=== PATIENT | male | born 1965 | race Caucasian/White ===

== ENCOUNTER 2017-09-24 03:10 | Emergency (ER) | payer SELFPAY ==
[~2017-09-24] VITALS: Ht 162.6 cm; Wt 72.0 kg
[2017-09-24] MEDS ORDERED: SODIUM CHLORIDE 0.9% 1,000ML IVBOLUS ONE (03:30)
[2017-09-24] MEDS ORDERED: ONDANSETRON 2MG/ML, 2ML IVPush ONE (03:30)
[2017-09-24] MEDS ORDERED: DIAZEPAM 5 MG/ML, 2ML IVPush ONE (03:30)
[2017-09-24] MEDS ORDERED: MAGNESIUM SULFATE 1 GM, THIAMINE 100 MG, FOLIC ACID 1 MG, MVI ADULT 10 ML in SODIUM CHL... IV ONE (03:30)
[2017-09-24] MEDS ORDERED: SODIUM CHLORIDE FLUSH 10ML SYR IVF ONE (03:30)
[2017-09-24 03:47] LABS: BLOOD UREA NITROGEN 13 mg/dL (7-18)
[2017-09-24] MEDS ORDERED: ONDANSETRON 2MG/ML, 2ML ONE (03:48)
[2017-09-24 03:59] LABS: HEMATOCRIT 48.3 % (39.2-51.8); HEMOGLOBIN 16.5 g/dL (13.7-18.0)
[2017-09-24] MEDS ORDERED: CHLORDIAZEPOXIDE 25 MG CAPSULE PO ONE (06:30)
[2017-09-24 08:21] VITALS: BP 118/59
== END 2017-09-24 08:28 | disposition home or self-care (01) ==
LOC: ED 06:13
DX: T68.XXXA Hypothermia, initial encounter (principal); Z72.9 Problem related to lifestyle, unspecified; F10.20 Alcohol dependence, uncomplicated; F19.10 Other psychoactive substance abuse, uncomplicated
CPT/HCPCS: 36415; 80048; 80307; 82040; 85025; 93005; 96365; 96366; 96375; 99285; J2405; J3360; J3411; J3475; J7030; G0479

== ENCOUNTER 2017-11-04 21:04 | Emergency (ER) | payer MEDICAID ==
[~2017-11-04] VITALS: Ht 162.6 cm; Wt 74.0 kg
[~2017-11-04 21:04] MED LIST: NITR100C56 PO
[2017-11-04 22:31] LABS: ALANINE AMINOTRANSFERASE 98 U/L (12-78); ALBUMIN 3.9 g/dL (3.4-5.0); ANION GAP 14 mmol/L (5-15); CALCIUM 9.4 mg/dL (8.5-10.1); CHLORIDE 102 mmol/L (98-107); CREATININE 0.94 mg/dL (0.7-1.3)
[2017-11-04 22:35] LABS: BASOPHILS # (AUTO) 0.05 x10^3/uL (0-0.1); BASOPHILS % (AUTO) 0 % (0-1); EOSINOPHILS # (AUTO) 0.48 x10^3/uL (0-0.4); EOSINOPHILS % (AUTO) 4 % (1-7); LYMPHOCYTES # (AUTO) 4.45 x10^3/uL (1-3.4); LYMPHOCYTES % (AUTO) 35 % (22-44); MD NO; MEAN CORPUSCULAR HEMOGLOBIN 32.2 pg (27.5-34.5); MEAN CORPUSCULAR HGB CONC 33.5 g/dL (33.2-36.2); MEAN CORPUSCULAR VOLUME 96.1 fL (81-97); MEAN PLATELET VOLUME 8.8 fL (7.4-10.4); MONOCYTES # (AUTO) 1.08 x10^3/uL (0.2-0.8); MONOCYTES % (AUTO) 8 % (2-9); NEUTROPHILS # (AUTO) 6.81 x10^3/uL (1.8-6.8); NEUTROPHILS % (AUTO) 53 % (42-75); PLATELET COUNT 291 x10^3/uL (130-400); RED BLOOD COUNT 4.76 x10^6/uL (4.38-5.82); RED CELL DISTRIBUTION WIDTH 16.5 % (9.4-14.8)
[2017-11-04 22:36] LABS: ALKALINE PHOSPHATASE 78 U/L (45-117); BILIRUBIN,TOTAL 0.4 mg/dL (0.2-1.0); TOTAL PROTEIN 8.4 g/dL (6.4-8.2); TROPONIN I < 0.015 ng/mL (0.000-0.045)
[2017-11-05 00:01] VITALS: BP 117/65
== END 2017-11-05 00:03 | disposition home or self-care (01) ==
LOC: ED 21:43
DX: F10.20 Alcohol dependence, uncomplicated (principal); I25.10 Atherosclerotic heart disease of native coronary artery without angina pectoris; Z95.5 Presence of coronary angioplasty implant and graft
CPT/HCPCS: 36415; 71010; 80053; 83880; 84484; 85025; 93005; 99285

== ENCOUNTER 2017-11-06 14:30 | Emergency (ER) | payer MEDICAID ==
[~2017-11-06] VITALS: Ht 162.6 cm; Wt 67.1 kg
[2017-11-06] MEDS ORDERED: ALBUTEROL SULFATE 2.5 MG/3 ML NPPB ONE (15:30)
[2017-11-06] MEDS ORDERED: ASPIRIN 81 MG TABLET CHEW PO ONE (15:30)
[2017-11-06] MEDS ORDERED: ALBUTEROL SULFATE 2.5 MG/3 ML ONE (16:05)
[2017-11-06 16:25] LABS: ALBUMIN 3.4 g/dL (3.4-5.0); ANION GAP 8 mmol/L (5-15); CALCIUM 8.9 mg/dL (8.5-10.1); CHLORIDE 111 mmol/L (98-107); CREATININE 0.64 mg/dL (0.7-1.3)
[2017-11-06 16:27] LABS: BASOPHILS # (AUTO) 0.02 x10^3/uL (0-0.1); BASOPHILS % (AUTO) 0 % (0-1); EOSINOPHILS # (AUTO) 0.31 x10^3/uL (0-0.4); EOSINOPHILS % (AUTO) 3 % (1-7); LYMPHOCYTES # (AUTO) 3.17 x10^3/uL (1-3.4); LYMPHOCYTES % (AUTO) 34 % (22-44); MD NO; MEAN CORPUSCULAR HEMOGLOBIN 32.1 pg (27.5-34.5); MEAN CORPUSCULAR HGB CONC 33.8 g/dL (33.2-36.2); MEAN PLATELET VOLUME 8.3 fL (7.4-10.4); MONOCYTES # (AUTO) 0.88 x10^3/uL (0.2-0.8); MONOCYTES % (AUTO) 9 % (2-9); NEUTROPHILS # (AUTO) 4.97 x10^3/uL (1.8-6.8); NEUTROPHILS % (AUTO) 53 % (42-75); PLATELET COUNT 225 x10^3/uL (130-400); RED BLOOD COUNT 4.24 x10^6/uL (4.38-5.82); RED CELL DISTRIBUTION WIDTH 16.8 % (9.4-14.8)
[2017-11-06 16:28] LABS: TROPONIN I < 0.015 ng/mL (0.000-0.045)
[2017-11-06] MEDS ORDERED: ASPIRIN 81 MG TABLET CHEW ONE (16:36)
[2017-11-06 16:50] LABS: MICROSCOPIC NOT IND
[2017-11-06] MEDS ORDERED: SODIUM CHLORIDE 0.9%, 500ML IVBOLUS ONE (17:00)
[2017-11-06 17:03] LABS: CULTURE INDICATED? NO
[2017-11-06] MEDS ORDERED: OMNIPAQUE 350 MG/ML, 100ML BOTTLE ONE (18:09)
[2017-11-06 19:30] VITALS: BP 146/72
== END 2017-11-06 19:33 | disposition home or self-care (01) ==
LOC: ED 16:36
DX: G89.29 Other chronic pain (principal); R06.00 Dyspnea, unspecified; I10 Essential (primary) hypertension; F17.210 Nicotine dependence, cigarettes, uncomplicated; I25.10 Atherosclerotic heart disease of native coronary artery without angina pectoris; J44.9 Chronic obstructive pulmonary disease, unspecified; I25.2 Old myocardial infarction
CPT/HCPCS: 36415; 71010; 71275; 80048; 81003; 82040; 84484; 85025; 85379; 93005; 94640; 96360; 99285; J7040; J7512; Q9967; J7613

== ENCOUNTER 2020-03-08 13:59 | Emergency (ER) | payer MEDICAID ==
[~2020-03-08] VITALS: Ht 162.6 cm; Wt 68.0 kg
[2020-03-08 14:02] VITALS: BP 132/76
--- NOTE | 2020-03-08 14:34 | NUR ---
PT IN HOSPITAL GOWN. PT PLACED ON CARDIAC AND VITALS MONITORS. PT LAYING IN BED, CUSSING TO HIMSELF, REMOVING VITALS MONITORS. PT MADE AWARE THE MONITORS NEED TO STAY ON. PT STATED OKAY HE REMOVED MORE TELE MONITOR STICKERS.
--- NOTE | 2020-03-08 14:50 | NUR ---
PT BANGING ON SLIDING DOOR IN ROOM, STATED, "I NEED TO GET OUT OF HERE, JUST PUT ME ON THE STREETS AND I'LL FIND MY WAY". PT ASKED TO LAY BACK IN THE GURNEY AND AWAIT FOR AN ERP TO EVALUATE HIM. PT STATED, "I'LL GIVE YOU A FEW MINUTES ONLY".
== END 2020-03-08 15:08 | disposition home or self-care (01) ==
LOC: ED 15:00
DX: R07.89 Other chest pain (principal); Z53.21 Procedure and treatment not carried out due to patient leaving prior to being seen by health care provider
CPT/HCPCS: 93005

== ENCOUNTER 2020-03-09 07:18 | Emergency (ER) | payer MEDICAID ==
[~2020-03-09] VITALS: Ht 162.6 cm; Wt 69.4 kg
[2020-03-09 08:16] LABS: BASOPHILS # (AUTO) 0.05 x10^3/uL (0-0.1); BASOPHILS % (AUTO) 1 % (0-1); EOSINOPHILS # (AUTO) 0.11 x10^3/uL (0-0.4); EOSINOPHILS % (AUTO) 1 % (1-7); LYMPHOCYTES # (AUTO) 3.34 x10^3/uL (1-3.4); LYMPHOCYTES % (AUTO) 35 % (22-44); MD NO; MEAN CORPUSCULAR HEMOGLOBIN 31.9 pg (27.5-34.5); MEAN CORPUSCULAR HGB CONC 33.3 g/dL (33.2-36.2); MEAN CORPUSCULAR VOLUME 95.7 fL (81-97); MEAN PLATELET VOLUME 7.6 fL (7.4-10.4); MONOCYTES # (AUTO) 0.44 x10^3/uL (0.2-0.8); MONOCYTES % (AUTO) 5 % (2-9); NEUTROPHILS # (AUTO) 5.54 x10^3/uL (1.8-6.8); NEUTROPHILS % (AUTO) 58 % (42-75); PLATELET COUNT 300 x10^3/uL (130-400); RED BLOOD COUNT 5.74 x10^6/uL (4.38-5.82); RED CELL DISTRIBUTION WIDTH 15.5 % (9.4-14.8)
[2020-03-09 08:27] LABS: ALANINE AMINOTRANSFERASE 41 U/L (12-78); ALBUMIN 4.3 g/dL (3.4-5.0); ANION GAP 11 mmol/L (5-15); CALCIUM 8.7 mg/dL (8.5-10.1); CHLORIDE 106 mmol/L (98-107); CREATININE 1.08 mg/dL (0.7-1.3)
[2020-03-09 08:32] LABS: ALKALINE PHOSPHATASE 95 U/L (45-117); BILIRUBIN,TOTAL 0.2 mg/dL (0.2-1.0); TOTAL PROTEIN 9.5 g/dL (6.4-8.2); TROPONIN I < 0.015 ng/mL (0.000-0.045)
--- NOTE | 2020-03-09 09:20 | NUR ---
PT HAS NO SPECIFIC COMPLAINT. STATES HE HAS SOME CHEST DISCOMFORT. PT DENIES SOB OR COUGH. PT NOT IN DISTRESS.
[2020-03-09] MEDS ORDERED: LORazepam 1MG TABLET ONE (10:23)
[2020-03-09 10:25] VITALS: BP 130/75
--- NOTE | 2020-03-09 10:29 | NUR ---
PT TREMULOUS. PT STATES HE DRINKS CONSTANTLY AND GOES THROUGH DT'S. MEDICATED PER ORDERS. PT OFF TO CTA.
[2020-03-09] MEDS ORDERED: LORazepam 1MG TABLET PO ONE (10:30)
[2020-03-09] MEDS ORDERED: OMNIPAQUE 350 MG/ML, 100ML BOTTLE ONE (10:52)
--- NOTE | 2020-03-09 11:00 | NUR ---
PT GIVEN SANDWHICH AND WATER. NO NEEDS AT THIS TIME
--- NOTE | 2020-03-09 11:39 | NUR ---
CALLED LAB, WILL DRAW TROP SOON PER LAB
[2020-03-09 11:58] LABS: TROPONIN I < 0.015 ng/mL (0.000-0.045)
--- NOTE | 2020-03-09 12:31 | NUR ---
Patient/Caregiver given discharge instructions and they have confirmed that they understand the instructions. Patient ambulatory with steady gait. PT LEFT WITH ALL PERSONAL BELONGINGS.
== END 2020-03-09 12:33 | disposition home or self-care (01) ==
LOC: MERGE 07:18 → ED 08:04
DX: R07.89 Other chest pain (principal); I25.2 Old myocardial infarction; I10 Essential (primary) hypertension; I25.10 Atherosclerotic heart disease of native coronary artery without angina pectoris; E78.5 Hyperlipidemia, unspecified; R00.0 Tachycardia, unspecified
CPT/HCPCS: 36415; 71045; 71275; 80053; 80307; 83690; 83735; 83880; 84484; 85025; 85379; 93005; 99285; Q9967